=== PATIENT | female | born 2000 | race Caucasian/White ===

== ENCOUNTER 2020-12-09 22:30 | Emergency (ER) | payer OTHER ==
--- NOTE | 2020-12-09 22:40 | ERPHSYRPT ---
- History of Present Illness Time Seen by Provider: 12/09/20 22:40 Source: patient Exam Limitations: no limitations Physician History: This is a 20-year-old white female who is 15 weeks and has a history of pulmonary emboli. She is taking twice a day heparin subcutaneous injections. She states that she is in fact taking it the way she is supposed to be. She has had sudden onset of chest pain, shortness of breath and cough that occurred 2 hours prior to arrival. She has had no hemoptysis. She has no new abdominal pain. She has no vaginal bleeding. She has no leg pain. Patient's OB doctor is Dr. Smith. Patient has had a history of miscarriages in the past. Patient took her first dose of azithromycin yesterday. Severity: mild Associated Symptoms: shortness of breath, chest pain, No nausea, No vomiting, No abdominal pain, No fever Allergies/Adverse Reactions: Penicillins Allergy (Severe, Verified 12/09/20 22:52) Tightness of Throat Home Medications: Azithromycin [Zithromax] 250 mg PO DAILY 12/09/20 [History] Heparin 5000 Units/0.5 ml [Heparin 5000 UNITS/0.5 ML (HIGH RISK MED)] 5,000 unit SQ BID 12/09/20 [History] Travel Risk - International Travel Have you traveled outside of the country in past 3 weeks: No - Coronavirus Screening Are you exhibiting any of the following symptoms?: No Symptoms: Cough: New Onset, Shortness of Breath Close contact with a COVID-19 positive Pt in past 14-21 Days: No - Vaccine Status Have you recieved a Covid-19 vaccination: No - Review of Systems Constitutional: No Symptoms Eyes: No Symptoms Ears, Nose, & Throat: No Symptoms Respiratory: Cough, Dyspnea Cardiac: No Symptoms, Chest Pain Abdominal/Gastrointestinal: No Symptoms Genitourinary Symptoms: No Symptoms Musculoskeletal: No Symptoms Skin: No Symptoms Neurological: No Symptoms Psychological: No Symptoms Endocrine: No Symptoms Hematologic/Lymphatic: No Symptoms Immunological/Allergic: No Symptoms All Other Systems: Reviewed and Negative - Past Medical History Pertinent Past Medical History: Yes - Past Surgical History Past Surgical History: Yes - Nursing Vital Signs Nursing Vital Signs: Initial Vital Signs Pulse Rate 114 H 12/09/20 22:31 Respiratory Rate 20 12/09/20 22:31 Blood Pressure 155/81 12/09/20 22:31 O2 Sat by Pulse Oximetry 100 12/09/20 22:31 Pain Scale Pain Intensity 4 - Physical Exam General Appearance: no apparent distress, alert, anxiety Eye Exam: PERRL/EOMI, eyes nml inspection Ears, Nose, Throat Exam: normal ENT inspection, moist mucous membranes Neck Exam: normal inspection, non-tender, supple, full range of motion Respiratory Exam: normal breath sounds, chest tenderness, lungs clear, airway intact, No respiratory distress Cardiovascular Exam: tachycardia Gastrointestinal/Abdomen Exam: soft, normal bowel sounds, other ( heart tones 165 bpm), No tenderness Pelvic Exam: not done Rectal Exam: not done Back Exam: normal inspection, normal range of motion, No CVA tenderness, No vertebral tenderness Extremity Exam: normal inspection, normal range of motion, pelvis stable Neurologic Exam: alert, oriented x 3, cooperative, house wrecker II-XII nml as tested, normal mood/affect, nml cerebellar function, nml station & gait, sensation nml Skin Exam: normal color, warm, dry Lymphatic Exam: No adenopathy SpO2 Interpretation: normal SpO2: 100 O2 Delivery: Room Air - Course Nursing assessment & vital signs reviewed: Yes EKG Interpreted by Me: RATE ([id number]), Sinus Tach, NORMAL AXIS, NORMAL INTERVALS, NORMAL QRS, NORMAL ST-T, Other (No acute ischemic changes. No comparison EKG available) Ordered Tests: Active Orders 24 hr Category Date Time Status EKG-ER Only STAT Care 12/09/20 22:40 Active IV Insertion STAT Care 12/09/20 22:40 Active Pulse Oximetry (ED) STAT Care 12/09/20 22:40 Active CHEST WITH CONTRAST [CT] Stat Exams 12/10/20 00:25 Taken CBC W DIFF Stat Lab 12/09/20 23:02 Completed CMP Stat Lab 12/09/20 23:02 Completed PROTIME WITH INR Stat Lab 12/09/20 23:00 Completed PTT Stat Lab 12/09/20 23:00 Completed TROPONIN Q3H Lab 12/09/20 23:02 Completed TROPONIN Q3H Lab 12/10/20 01:45 Ordered TROPONIN Q3H Lab 12/10/20 04:45 Ordered TROPONIN Q3H Lab 12/10/20 07:45 Ordered TROPONIN Q3H Lab 12/10/20 10:45 Ordered Medication Summary Generic Name Dose Route Start Last Admin Trade Name Freq PRN Reason Stop Dose Admin Ceftriaxone Sodium/Dextrose 1 g in 50 mls @ 100 mls/hr 12/10/20 02:14 Rocephin 1 Gm-D5w 50 Ml Bag IV 12/10/20 02:43 STAT STA Discontinued Medications Generic Name Dose Route Start Last Admin Trade Name Sajan PRN Reason Stop Dose Admin Sodium Chloride 500 mls @ 500 mls/hr 12/09/20 23:02 12/09/20 23:12 Sodium Chloride 0.9% 500 Ml IV 12/10/20 00:01 500 mls/hr .Q1H ONE Administration Sodium Chloride Confirm 12/09/20 23:08 Sodium Chloride 0.9% 500 Ml Administered 12/09/20 23:09 Dose 500 mls @ ud IV .STK-MED ONE Lab/Rad Data: Laboratory Result Diagrams 12/09/20 23:02 12/09/20 23:02 Laboratory Results 12/09/20 12/09/20 12/09/20 Range/Units 23:02 23:02 23:02 WBC 10.0 (4.0-10.5) K/mm3 RBC 3.82 L (4.1-5.4) M/mm3 Hgb 9.3 L (12.0-16.0) gm/dl Hct 30.7 L (35-47) % MCV 80.4 (78-100) fl MCH 24.3 L (26-32) pg MCHC 30.3 L (32-36) g/dl RDW 17.1 H (11.5-14.0) % Plt Count 282 (150-450) K/mm3 MPV 9.2 (7.5-11.0) fl Gran % 75.8 H (36.0-66.0) % Eos # (Auto) 0.07 (0-0.5) Absolute Lymphs (auto) 1.50 (1.0-4.6) Absolute Monos (auto) 0.83 (0.0-1.3) Lymphocytes % 15.0 L (24.0-44.0) % Monocytes % 8.3 (0.0-12.0) % Eosinophils % 0.7 (0.00-5.0) % Basophils % 0.2 (0.0-0.4) % Absolute Granulocytes 7.60 H (1.4-6.9) Basophils # 0.02 (0-0.4) PT (9.95-12.35) SECONDS INR (0.8-3.0) APTT (25.3-37.0) SECONDS Sodium 133 L (137-145) mmol/L Potassium 4.1 (3.5-5.1) mmol/L Chloride 103 (98-107) mmol/L Carbon Dioxide 24 (22-30) mmol/L Anion Gap 9.9 (5-15) MEQ/L BUN 8 (7-17) mg/dL Creatinine 0.53 (0.52-1.04) mg/dL Estimated GFR > 60.0 ML/MIN Glucose 107 H (74-106) mg/dL Calcium 9.3 (8.4-10.2) mg/dL Total Bilirubin 0.20 (0.2-1.3) mg/dL AST 17 (14-36) U/L ALT 10 (0-35) U/L Alkaline Phosphatase 81 (38-126) U/L Troponin I < 0.012 (0.000-0.034) ng/mL Serum Total Protein 7.6 (6.3-8.2) g/dL Albumin 4.1 (3.5-5.0) g/dL 12/09/20 Range/Units 23:00 WBC (4.0-10.5) K/mm3 RBC (4.1-5.4) M/mm3 Hgb (12.0-16.0) gm/dl Hct (35-47) % MCV (78-100) fl MCH (26-32) pg MCHC (32-36) g/dl RDW (11.5-14.0) % Plt Count (150-450) K/mm3 MPV (7.5-11.0) fl Gran % (36.0-66.0) % Eos # (Auto) (0-0.5) Absolute Lymphs (auto) (1.0-4.6) Absolute Monos (auto) (0.0-1.3) Lymphocytes % (24.0-44.0) % Monocytes % (0.0-12.0) % Eosinophils % (0.00-5.0) % Basophils % (0.0-0.4) % Absolute Granulocytes (1.4-6.9) Basophils # (0-0.4) PT 13.2 H (9.95-12.35) SECONDS INR 1.17 (0.8-3.0) APTT 28.1 (25.3-37.0) SECONDS Sodium (137-145) mmol/L Potassium (3.5-5.1) mmol/L Chloride (98-107) mmol/L Carbon Dioxide (22-30) mmol/L Anion Gap (5-15) MEQ/L BUN (7-17) mg/dL Creatinine (0.52-1.04) mg/dL Estimated GFR ML/MIN Glucose (74-106) mg/dL Calcium (8.4-10.2) mg/dL Total Bilirubin (0.2-1.3) mg/dL AST (14-36) U/L ALT (0-35) U/L Alkaline Phosphatase (38-126) U/L Troponin I (0.000-0.034) ng/mL Serum Total Protein (6.3-8.2) g/dL Albumin (3.5-5.0) g/dL - Progress Progress: improved, re-examined Progress Note: 12/09/20 23:28 Medical decision making: This patient has a significant history of pulmonary emboli. She is 15 weeks and has been taking heparin 5000 units subcutaneously twice a day. She has significant symptoms that were sudden in onset. The only way to know whether or not she has pulmonary emboli present is to perform a CAT scan of the chest with contrast. I discussed with her the risk of radiation as well as intravenous contrast to the fetus. Patient wants to have the CAT scan of the chest performed. 12/10/20 02:15 CAT scan of the chest with contrast is negative for pulmonary embolus. There is right lower lobe atelectasis versus minimal infiltrate. I did contact Dr. Smith, the patient's sand caster apprentice. I reviewed the patient history and the results of the work-up. He stated that Rocephin and Z-Neymar is fine for treatment in this patient. We will give intravenous Rocephin here today and patient can begin her Z-Neymar later in the day. Discussed with : Hayley Counseled pt/family regarding: lab results, diagnosis, need for follow-up, rad results - Departure Departure Disposition: Home Clinical Impression: Infiltrate of lung present on chest x-ray Condition: Stable Critical Care Time: No Referrals: MOHINDER SMITH DO [Primary Care Provider] - Additional Instructions: Continue your Z-Neymar as prescribed. Follow-up with your sand caster apprentice by phone on Saturday, December 12, 2020 2 make arranges for follow-up appointment.
[2020-12-09] MEDS ORDERED: Sodium Chloride 0.9% 500 ML 500 ML IV ONE ×2 (23:02→23:08)
[2020-12-09 23:05] LABS: BASOPHIL % 0.2 % (0.0-0.4); Basophil (Absolute #) 0.02 (0-0.4); Eosinophil % 0.7 % (0.00-5.0); Eosinophil (Absolute #) 0.07 (0-0.5); Hematocrit 30.7 % (35-47); Hemoglobin 9.3 gm/dl (12.0-16.0); Mean Cell Volume 80.4 fl (78-100); Mean Corpuscular Hemoglobin 24.3 pg (26-32); Mean Corpuscular Hgb Concent. 30.3 g/dl (32-36); Mean Platelet Volume 9.2 fl (7.5-11.0); Monocyte (Absolute #) 0.83 (0.0-1.3); Monocytes % 8.3 % (0.0-12.0); Neutrophil % 75.8 % (36.0-66.0); Platelet Count 282 K/mm3 (150-450); Red Blood Count 3.82 M/mm3 (4.1-5.4); Red Cell Distribution Width 17.1 % (11.5-14.0)
[2020-12-09 23:17] LABS: ALBUMIN 4.1 g/dL (3.5-5.0); ALKALINE PHOSPHATASE 81 U/L (38-126); ANION GAP 9.9 MEQ/L (5-15); BLOOD UREA NITROGEN 8 mg/dL (7-17); CHLORIDE 103 mmol/L (98-107); Calcium 9.3 mg/dL (8.4-10.2); Carbon Dioxide 24 mmol/L (22-30); Creatinine 1 0.53 mg/dL (0.52-1.04); EST GLOMERULAR FILTRATION RATE > 60.0 ML/MIN; Glucose 107 mg/dL (74-106); Potassium 4.1 mmol/L (3.5-5.1); SGOT/AST 17 U/L (14-36); SGPT/ALT 10 U/L (0-35); SODIUM 133 mmol/L (137-145); Total Protein 7.6 g/dL (6.3-8.2)
[2020-12-09 23:29] LABS: PTT 28.1 SECONDS (25.3-37.0)
[2020-12-09 23:31] LABS: INR 1.17 (0.8-3.0); PROTIME 13.2 SECONDS (9.95-12.35)
[2020-12-10] MEDS ORDERED: ROCEPHIN 1 Gm-D5w 50 ml Bag** 1 G/50 ML IVPB IV STA (02:14)
[2020-12-10 02:32] VITALS: BP 108/66; PULSE 91; O2SAT 99
--- NOTE | 2020-12-10 08:23 | XRAY ---
Indication: Chest pain and short of breath. 15 weeks . Multiple contiguous axial images obtained through the chest using 80 cc Isovue 370 contrast and PE protocol. Comparison: None Ordering ER clinician is aware of patient's . Abdomen was shielded appropriately. There is satisfactory opacification of the pulmonary arteries. No pulmonary embolus. Heart is not enlarged. Aorta is normal in course and caliber. No pathologic mediastinal/hilar lymphadenopathy. Mild right lower lobe pleural thickening/subsegmental atelectasis. No suspicious pulmonary mass, infiltrate, or effusion. Bony thorax intact. Limited upper abdomen unremarkable. Impression: 1. Negative pulmonary embolus. No acute cardiopulmonary abnormalities. 2. Right lower lobe pleural thickening/subsegmental atelectasis. Comment: Preliminary interpretation was made by [facility]. No critical discrepancy.
== END 2020-12-10 02:40 | disposition home or self-care (01) ==
LOC: ED 22:30
DX: R91.8 Other nonspecific abnormal finding of lung field (principal)
CPT/HCPCS: 36000; 36415; 71260; 80053; 84484; 85025; 85610; 85730; 93005; 94760; 99284